=== PATIENT | male | born 1955 | race Caucasian/White ===

== ENCOUNTER 2023-06-06 11:00 | Outpatient (RCR) | payer MEDICARE, BC, SELFPAY | END 2023-06-06 23:59 | disposition home or self-care (01) | LOC: CR 11:00 | PROVIDERS: Visit Provider Internal Medicine Interventional Cardiology | DX: I25.2 Old myocardial infarction (principal); Z95.5 Presence of coronary angioplasty implant and graft; Z51.89 Encounter for other specified aftercare | CPT/HCPCS: S9472 ==

== ENCOUNTER 2023-07-02 10:00 | Outpatient (RCR) | payer MEDICARE, BC, SELFPAY | END 2023-07-05 23:59 | disposition home or self-care (01) | LOC: CR 10:00 | PROVIDERS: Visit Provider Internal Medicine Cardiovascular Disease | DX: I25.2 Old myocardial infarction (principal); Z95.5 Presence of coronary angioplasty implant and graft; Z51.89 Encounter for other specified aftercare | CPT/HCPCS: S9472 ==

== ENCOUNTER 2023-08-03 09:52 | Outpatient (RCR) | payer MEDICARE, BC, SELFPAY | END 2023-08-05 23:59 | disposition home or self-care (01) | LOC: CR 09:52 | PROVIDERS: Visit Provider Internal Medicine Cardiovascular Disease | DX: I25.2 Old myocardial infarction (principal); Z95.5 Presence of coronary angioplasty implant and graft; Z51.89 Encounter for other specified aftercare | CPT/HCPCS: S9472 ==

== ENCOUNTER 2023-09-03 10:19 | Outpatient (RCR) | payer MEDICARE, BC, SELFPAY | END 2023-09-04 23:59 | disposition home or self-care (01) | LOC: CR 10:19 | PROVIDERS: Visit Provider Internal Medicine Cardiovascular Disease | DX: I25.2 Old myocardial infarction (principal); Z95.5 Presence of coronary angioplasty implant and graft; Z51.89 Encounter for other specified aftercare | CPT/HCPCS: S9472 ==

== ENCOUNTER 2023-09-21 10:00 | Outpatient (RCR) | payer MEDICARE, BC, SELFPAY ==
[2023-09-25 10:20] VITALS: BP 126/76; PULSE 66
== END 2023-10-05 23:59 | disposition home or self-care (01) ==
LOC: CR 10:00
PROVIDERS: Visit Provider Internal Medicine Cardiovascular Disease
DX: I25.2 Old myocardial infarction (principal); Z95.5 Presence of coronary angioplasty implant and graft; Z51.89 Encounter for other specified aftercare
CPT/HCPCS: S9472

== ENCOUNTER 2023-11-01 10:21 | Outpatient (RCR) | payer SELFPAY ==
[2023-10-06 00:14] VITALS: BP 135/73; PULSE 49
[2023-10-09 10:36] VITALS: BP 131/68; PULSE 53
[2023-10-11 10:20] VITALS: BP 128/78; PULSE 77
[2023-10-18 12:25] VITALS: BP 124/76; PULSE 55
[2023-10-23 13:19] VITALS: BP 132/73; PULSE 53
[2023-10-25 10:18] VITALS: BP 119/65; PULSE 51
[2023-10-30 10:24] VITALS: BP 124/77; PULSE 57
[2023-11-01 10:12] VITALS: BP 122/74; PULSE 57
== END 2023-11-04 23:59 | disposition home or self-care (01) ==
LOC: CR 10:21
PROVIDERS: Visit Provider Internal Medicine Cardiovascular Disease
DX: R69 Illness, unspecified (principal)

== ENCOUNTER 2023-11-29 10:00 | Outpatient (RCR) | payer SELFPAY ==
[2023-11-13 09:55] VITALS: BP 118/69; PULSE 52
[2023-11-20 10:16] VITALS: BP 129/68; PULSE 54
[2023-11-22 13:28] VITALS: BP 117/67; PULSE 41
[2023-11-27 11:15] VITALS: BP 128/72; PULSE 48
[2023-11-29 10:00] VITALS: BP 134/74; PULSE 46
== END 2023-12-05 23:59 | disposition home or self-care (01) ==
LOC: CR 10:00
PROVIDERS: Visit Provider Internal Medicine Cardiovascular Disease
DX: R69 Illness, unspecified (principal)

== ENCOUNTER 2024-01-03 10:06 | Outpatient (RCR) | payer SELFPAY ==
[2023-12-06 00:18] VITALS: BP 134/74; PULSE 46
[2023-12-06 09:49] VITALS: BP 124/73; PULSE 49
[2023-12-11 13:51] VITALS: BP 141/81; PULSE 49
[2023-12-18 09:56] VITALS: BP 136/79; PULSE 54
[2023-12-20 10:22] VITALS: BP 131/75; PULSE 50
[2023-12-25 10:22] VITALS: BP 177/81; PULSE 73
[2023-12-27 10:02] VITALS: BP 166/78; PULSE 49
[2024-01-01 10:02] VITALS: BP 144/71; PULSE 52
[2024-01-03 10:17] VITALS: BP 122/82; PULSE 52
== END 2024-01-05 23:59 | disposition home or self-care (01) ==
LOC: CR 10:06
PROVIDERS: Visit Provider Internal Medicine Cardiovascular Disease
DX: R69 Illness, unspecified (principal)

== ENCOUNTER 2024-01-31 09:51 | Outpatient (RCR) | payer SELFPAY ==
[2024-01-06 00:08] VITALS: BP 134/74; PULSE 46
[2024-01-08 10:28] VITALS: BP 122/71; PULSE 48
[2024-01-10 10:12] VITALS: BP 145/82; PULSE 45
[2024-01-15 10:11] VITALS: BP 154/85; PULSE 51
[2024-01-17 10:28] VITALS: BP 127/71; PULSE 61
[2024-01-22 10:53] VITALS: BP 148/72; PULSE 48
[2024-01-24 10:54] VITALS: BP 136/87; PULSE 51
[2024-01-29 10:21] VITALS: BP 124/68; PULSE 34
[2024-01-31 10:03] VITALS: BP 142/77; PULSE 58
== END 2024-02-04 23:59 | disposition home or self-care (01) ==
LOC: CR 09:51
PROVIDERS: Visit Provider Internal Medicine Cardiovascular Disease
DX: R69 Illness, unspecified (principal)
CPT/HCPCS: S9472

== ENCOUNTER 2024-03-06 09:54 | Outpatient (RCR) | payer SELFPAY ==
[2024-02-05 13:19] VITALS: BP 126/80; PULSE 51
[2024-02-07 10:02] VITALS: BP 146/78; PULSE 49; O2SAT 96
[2024-02-12 10:07] VITALS: BP 109/73; PULSE 47
[2024-02-14 10:00] VITALS: BP 140/73; PULSE 46
[2024-02-19 10:00] VITALS: BP 135/72; PULSE 49
[2024-02-21 09:45] VITALS: BP 149/74; PULSE 54; O2SAT 95
[2024-02-26 10:14] VITALS: BP 115/70; PULSE 52
[2024-03-04 10:14] VITALS: BP 128/76; PULSE 52
[2024-03-06 10:59] VITALS: BP 134/79; PULSE 50
== END 2024-03-06 23:59 | disposition home or self-care (01) ==
LOC: CR 09:54
PROVIDERS: Visit Provider Internal Medicine Cardiovascular Disease
DX: R69 Illness, unspecified (principal)

== ENCOUNTER 2024-03-27 10:03 | Outpatient (RCR) | payer SELFPAY ==
[2024-03-07 00:15] VITALS: BP 134/79; PULSE 50
[2024-03-11 10:06] VITALS: BP 118/63; PULSE 46
[2024-03-13 10:15] VITALS: BP 125/70; PULSE 46
[2024-03-18 09:54] VITALS: BP 135/77; PULSE 53
[2024-03-25 10:09] VITALS: BP 150/72; PULSE 46
[2024-03-27 10:11] VITALS: BP 128/76; PULSE 49
== END 2024-04-05 23:59 | disposition home or self-care (01) ==
LOC: CR 10:03
PROVIDERS: Visit Provider Internal Medicine Cardiovascular Disease
DX: R69 Illness, unspecified (principal)

== ENCOUNTER 2024-05-06 10:48 | Outpatient (RCR) | payer SELFPAY ==
[2024-04-06 00:07] VITALS: BP 134/79; PULSE 50
[2024-04-08 10:37] VITALS: BP 148/82; PULSE 52
[2024-04-10 09:52] VITALS: BP 153/75; PULSE 52
[2024-04-15 10:11] VITALS: BP 159/78; PULSE 53
[2024-04-17 10:01] VITALS: BP 158/89; PULSE 55
[2024-04-22 10:07] VITALS: BP 145/77; PULSE 52
[2024-04-24 10:24] VITALS: BP 131/79; PULSE 53
[2024-04-29 10:14] VITALS: BP 167/80; PULSE 54
[2024-04-29 10:28] VITALS: BP 143/76
[2024-05-06 10:59] VITALS: BP 139/88; PULSE 52
== END 2024-05-06 23:59 | disposition home or self-care (01) ==
LOC: CR 10:48
PROVIDERS: Visit Provider Internal Medicine Cardiovascular Disease
DX: R69 Illness, unspecified (principal)

== ENCOUNTER 2024-06-05 10:00 | Outpatient (RCR) | payer SELFPAY ==
[2024-05-07 00:20] VITALS: BP 134/79; PULSE 50
[2024-05-08 10:21] VITALS: BP 143/82; PULSE 51
[2024-05-13 10:08] VITALS: BP 164/71; PULSE 55
[2024-05-15 10:44] VITALS: BP 156/77; PULSE 54
[2024-06-03 10:18] VITALS: BP 169/79; PULSE 56
[2024-06-05 10:02] VITALS: BP 146/68; PULSE 52; O2SAT 95
== END 2024-06-06 23:59 | disposition home or self-care (01) ==
LOC: CR 10:00
PROVIDERS: Visit Provider Internal Medicine Cardiovascular Disease
DX: R69 Illness, unspecified (principal)

== ENCOUNTER 2024-07-03 11:09 | Outpatient (RCR) | payer SELFPAY ==
[2024-06-10 10:26] VITALS: BP 122/74; PULSE 51
[2024-06-12 09:50] VITALS: BP 164/75; PULSE 48
[2024-06-17 10:46] VITALS: BP 148/76; PULSE 52
[2024-06-19 10:00] VITALS: BP 150/80; PULSE 51
[2024-06-24 10:23] VITALS: BP 144/76; PULSE 56
[2024-07-01 10:20] VITALS: BP 150/84; PULSE 55
[2024-07-03 13:43] VITALS: BP 157/80; PULSE 53
== END 2024-07-04 23:59 | disposition home or self-care (01) ==
LOC: CR 11:09
PROVIDERS: Visit Provider Internal Medicine Cardiovascular Disease
DX: R69 Illness, unspecified (principal)

== ENCOUNTER 2024-07-29 10:03 | Outpatient (RCR) | payer SELFPAY ==
[2024-07-05 00:20] VITALS: BP 157/80; PULSE 53
[2024-07-08 14:38] VITALS: BP 136/80; PULSE 54
[2024-07-10 10:04] VITALS: BP 135/66; PULSE 53
[2024-07-15 10:14] VITALS: BP 170/87; PULSE 51
[2024-07-17 10:05] VITALS: BP 159/77; PULSE 48; O2SAT 94
[2024-07-22 10:18] VITALS: BP 139/82; PULSE 51
[2024-07-24 10:27] VITALS: BP 138/83; PULSE 50
[2024-07-29 11:05] VITALS: BP 160/78; PULSE 50
== END 2024-08-04 23:59 | disposition home or self-care (01) ==
LOC: CR 10:03
PROVIDERS: Visit Provider Internal Medicine Cardiovascular Disease
DX: R69 Illness, unspecified (principal)

== ENCOUNTER 2024-09-02 10:26 | Outpatient (RCR) | payer SELFPAY ==
[2024-08-05 00:20] VITALS: BP 157/80; PULSE 53
[2024-08-07 10:02] VITALS: BP 144/80; PULSE 60; O2SAT 94
[2024-08-12 10:49] VITALS: BP 161/82; PULSE 49
[2024-08-14 10:00] VITALS: BP 140/77; PULSE 50; O2SAT 94
[2024-08-19 10:49] VITALS: BP 128/77; PULSE 49
[2024-08-21 10:20] VITALS: BP 150/74; PULSE 49
[2024-08-26 12:28] VITALS: BP 139/73; PULSE 49
[2024-09-02 10:27] VITALS: BP 143/80; PULSE 52
== END 2024-09-03 23:59 | disposition home or self-care (01) ==
LOC: CR 10:26
PROVIDERS: Visit Provider Internal Medicine Cardiovascular Disease
DX: R69 Illness, unspecified (principal)

== ENCOUNTER 2024-10-02 10:32 | Outpatient (RCR) | payer SELFPAY ==
[2024-09-04 00:09] VITALS: BP 157/80; PULSE 53
[2024-09-04 11:07] VITALS: BP 138/73; PULSE 48
[2024-09-09 10:19] VITALS: BP 129/70; PULSE 55
[2024-09-16 12:05] VITALS: BP 154/73; PULSE 49
[2024-09-23 10:15] VITALS: BP 145/72; PULSE 53
[2024-09-25 10:08] VITALS: BP 147/75; PULSE 59
[2024-09-30 12:00] VITALS: BP 146/81; PULSE 44
[2024-10-02 10:54] VITALS: BP 145/73; PULSE 52
== END 2024-10-04 23:59 | disposition home or self-care (01) ==
LOC: CR 10:32
PROVIDERS: Visit Provider Internal Medicine Cardiovascular Disease
DX: R69 Illness, unspecified (principal)

== ENCOUNTER 2024-10-30 10:00 | Outpatient (RCR) | payer SELFPAY ==
[2024-10-05 00:07] VITALS: BP 157/80; PULSE 53
[2024-10-07 11:17] VITALS: BP 125/77; PULSE 53
[2024-10-09 10:18] VITALS: BP 153/77; PULSE 54
[2024-10-16 11:23] VITALS: BP 140/66; PULSE 51
[2024-10-21 10:04] VITALS: BP 141/68; PULSE 43
[2024-10-23 10:37] VITALS: BP 121/72; PULSE 59
[2024-10-28 10:18] VITALS: BP 139/67; PULSE 52
[2024-10-30 10:00] VITALS: BP 144/76; PULSE 48
== END 2024-11-03 23:59 | disposition home or self-care (01) ==
LOC: CR 10:00
PROVIDERS: Visit Provider Internal Medicine Cardiovascular Disease
DX: R69 Illness, unspecified (principal)

== ENCOUNTER 2024-12-04 10:00 | Outpatient (RCR) | payer SELFPAY ==
[2024-11-04 10:15] VITALS: BP 111/70; PULSE 65
[2024-11-06 10:25] VITALS: BP 138/68; PULSE 51; O2SAT 98
[2024-11-11 10:04] VITALS: BP 121/75; PULSE 52
[2024-11-13 10:26] VITALS: BP 134/81; PULSE 50
[2024-11-20 09:59] VITALS: BP 135/71; PULSE 54
[2024-11-25 10:16] VITALS: BP 141/71; PULSE 49
[2024-11-27 10:59] VITALS: BP 142/78; PULSE 55
[2024-12-02 10:27] VITALS: BP 121/73; PULSE 50
[2024-12-04 10:06] VITALS: BP 134/75; PULSE 48
== END 2024-12-04 23:59 | disposition home or self-care (01) ==
LOC: CR 10:00
PROVIDERS: Visit Provider Internal Medicine Cardiovascular Disease
DX: R69 Illness, unspecified (principal)

== ENCOUNTER 2025-01-01 10:00 | Outpatient (RCR) | payer SELFPAY ==
[2024-12-05 00:11] VITALS: BP 134/75; PULSE 48
[2024-12-09 10:09] VITALS: BP 145/79; PULSE 48
[2024-12-11 10:44] VITALS: BP 138/73; PULSE 48
[2024-12-16 10:00] VITALS: BP 138/70; PULSE 50
[2024-12-30 10:14] VITALS: BP 146/71; PULSE 50
[2025-01-01 10:00] VITALS: BP 144/73; PULSE 46
== END 2025-01-04 23:59 | disposition home or self-care (01) ==
LOC: CR 10:00
PROVIDERS: Visit Provider Internal Medicine Cardiovascular Disease
DX: R69 Illness, unspecified (principal)

== ENCOUNTER 2025-02-03 10:00 | Outpatient (RCR) | payer SELFPAY ==
[2025-01-06 10:29] VITALS: BP 139/81; PULSE 52
[2025-01-08 10:24] VITALS: BP 148/77; PULSE 50
[2025-01-13 10:10] VITALS: BP 142/80; PULSE 46
[2025-01-15 10:30] VITALS: BP 143/80; PULSE 40
[2025-01-20 10:41] VITALS: BP 148/70; PULSE 49
[2025-01-22 10:34] VITALS: BP 159/68; PULSE 54
[2025-01-27 10:07] VITALS: BP 154/82; PULSE 55
[2025-01-29 10:00] VITALS: BP 171/83; PULSE 49
[2025-02-03 10:24] VITALS: BP 135/68; PULSE 44
== END 2025-02-03 23:59 | disposition home or self-care (01) ==
LOC: CR 10:00
PROVIDERS: Visit Provider Internal Medicine Cardiovascular Disease
DX: R69 Illness, unspecified (principal)

== ENCOUNTER 2025-03-05 10:00 | Outpatient (RCR) | payer SELFPAY ==
[2025-02-04 00:10] VITALS: BP 135/68; PULSE 44
[2025-02-05 10:51] VITALS: BP 163/80; PULSE 49
[2025-02-10 10:07] VITALS: BP 141/83; PULSE 57
[2025-02-17 11:27] VITALS: BP 133/83; PULSE 52
[2025-02-19 10:16] VITALS: BP 176/84; PULSE 48
[2025-02-24 10:29] VITALS: BP 136/74; PULSE 49
[2025-02-26 10:09] VITALS: BP 131/78; PULSE 50
[2025-03-03 10:25] VITALS: BP 153/83; PULSE 54
[2025-03-05 10:05] VITALS: BP 146/88; PULSE 54; O2SAT 96
== END 2025-03-06 23:59 | disposition home or self-care (01) ==
LOC: CR 10:00
PROVIDERS: Visit Provider Internal Medicine Cardiovascular Disease
DX: R69 Illness, unspecified (principal)

== ENCOUNTER 2025-03-31 10:00 | Outpatient (RCR) | payer SELFPAY ==
[2025-03-07 00:21] VITALS: BP 146/88; PULSE 54
[2025-03-10 10:27] VITALS: BP 157/80; PULSE 47
[2025-03-12 11:22] VITALS: BP 148/85; PULSE 50
[2025-03-17 10:15] VITALS: BP 142/78; PULSE 53; O2SAT 98
[2025-03-19 10:25] VITALS: BP 140/83; PULSE 59
[2025-03-24 10:24] VITALS: BP 147/76; PULSE 51
[2025-03-26 10:21] VITALS: BP 139/71; PULSE 51
[2025-03-31 10:13] VITALS: BP 150/69; PULSE 48
== END 2025-04-05 23:59 | disposition home or self-care (01) ==
LOC: CR 10:00
PROVIDERS: Visit Provider Internal Medicine Cardiovascular Disease
DX: R69 Illness, unspecified (principal)

== ENCOUNTER 2025-04-28 10:00 | Outpatient (RCR) | payer SELFPAY ==
[2025-04-06 00:08] VITALS: BP 150/69; PULSE 48
[2025-04-09 10:23] VITALS: BP 178/89; PULSE 51
[2025-04-14 10:31] VITALS: BP 143/76; PULSE 50
[2025-04-16 11:10] VITALS: BP 158/90; PULSE 53
[2025-04-23 11:22] VITALS: BP 134/75; PULSE 54
[2025-04-28 09:57] VITALS: BP 163/79; PULSE 48
== END 2025-05-06 23:59 | disposition home or self-care (01) ==
LOC: CR 10:00
PROVIDERS: Visit Provider Internal Medicine Cardiovascular Disease
DX: R69 Illness, unspecified (principal)